=== PATIENT | male | born 1985 | race African-American/Black ===

== ENCOUNTER 2020-01-13 16:26 | Emergency (ER) | payer OTHER ==
[~2020-01-13] VITALS: Ht 175.3 cm; Wt 113.4 kg
[2020-01-13 16:27] VITALS: BP 162/112
--- NOTE | 2020-01-13 16:38 | NUR ---
PT AMB TO BED 9.
--- NOTE | 2020-01-13 16:43 | NUR ---
TRACIE Douglas is evaluating the patient at bedside.
[2020-01-13] MEDS ORDERED: LIDOCAINE 2% 1000 MG/50 ML VIAL INJ ONE (16:50)
--- NOTE | 2020-01-13 16:52 | NUR ---
Dr. Franco is evaluating the patient at bedside.
--- NOTE | 2020-01-13 16:54 | NUR ---
wound cleaned with sterile water and betadine
--- NOTE | 2020-01-13 17:01 | NUR ---
dispensary technician at bedside.
[2020-01-13] MEDS ORDERED: BACITRACIN OINT 500 UNITS/GM PKT TP ONE ×3 (17:54→17:55)
[2020-01-13] MEDS ORDERED: cefTRIAXone 1,000 MG in LIDOCAINE MPF 1% 2.1 ML IM ONE (17:55)
[2020-01-13] MEDS ORDERED: cefTRIAXone 1,000 MG VIAL ONE (17:57)
[2020-01-13] MEDS ORDERED: LIDOCAINE MPF 1% 5 ML ONE (17:58)
--- NOTE | 2020-01-13 18:15 | NUR ---
NADR, PAIN 08/19
[2020-01-13 18:17] VITALS: BP 153/88
--- NOTE | 2020-01-13 18:17 | NUR ---
Patient discharged with v/s stable. Written and verbal after care instructions given and explained. Patient alert, oriented and verbalized understanding of instructions. Ambulatory with steady gait. All questions addressed prior to discharge. ID band removed. Patient advised to follow up with PMD. Rx of BACITRACIN, IBUPFROFEN, AND KEFLEX given. Patient educated on indication of medication including possible reaction and side effects. Opportunity to ask questions provided and answered. PT GIVEN EXCUSE FOR WORK UNTIL January WOUND WRAPPED BY JOHN EMT
== END 2020-01-13 18:17 | disposition home or self-care (01) ==
LOC: MED 16:26
DX: S81.812A Laceration without foreign body, left lower leg, initial encounter (principal); W23.0XXA Caught, crushed, jammed, or pinched between moving objects, initial encounter; Y93.89 Activity, other specified; Y92.89 Other specified places as the place of occurrence of the external cause; Y99.8 Other external cause status
CPT/HCPCS: 12005; 73590; 90471; 90715; 96372; 99284; J0696; J2001; Q0092